=== PATIENT | female | born 1995 | race American Indian/Alaskan Native ===

== ENCOUNTER 2019-09-02 10:00 | Emergency (ER) | payer OTHER ==
[2019-09-02] MEDS ORDERED: HYDROcodone/ACETAMINOPHEN 5-325 MG TAB PO ONE (10:32)
[2019-09-02] MEDS ORDERED: ONDANSETRON 4 MG ODT TAB PO ONE (10:32)
[2019-09-02] MEDS ORDERED: TETANUS,DIPH,PERTUSS(ACELL) VACCINE 0.5 ML SYRINGE IM ONE (10:32)
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
[2019-09-02 13:36] VITALS: BP 121/64
== END 2019-09-02 13:36 | disposition home or self-care (01) ==
LOC: ED 10:00
DX: S06.0X1A Concussion with loss of consciousness of 30 minutes or less, initial encounter (principal); S10.91XA Abrasion of unspecified part of neck, initial encounter; S30.811A Abrasion of abdominal wall, initial encounter; J34.89 Other specified disorders of nose and nasal sinuses; M25.522 Pain in left elbow; M79.641 Pain in right hand; M54.6 Pain in thoracic spine; Y04.0XXA Assault by unarmed brawl or fight, initial encounter; Y93.89 Activity, other specified; Y92.89 Other specified places as the place of occurrence of the external cause; Y99.8 Other external cause status
CPT/HCPCS: 70450; 70486; 72072; 90471; 90715; Q0162